=== PATIENT | female | born 1990 | race Caucasian/White ===

== ENCOUNTER 2018-11-22 01:34 | Emergency (ER) | payer MEDICAID ==
[~2018-11-22] VITALS: Ht 172.7 cm; Wt 46.2 kg
[~2018-11-22 01:34] MED LIST: HYDR-4383 PO; ONDA4TAB12 PO
[2018-11-22 01:39] VITALS: BP 128/79
[2018-11-22] MEDS ORDERED: acetaminophen 325mg tablet PO ONE (02:35)
[2018-11-22] MEDS ORDERED: bacitracin 15gm ointment TP ONE (02:35)
[2018-11-22] MEDS ORDERED: ketorolac trometh inj. 60 MG/2 ML VIAL IM ONE (02:35)
[2018-11-22] MEDS ORDERED: IBUP-1984 PO (03:19)
== END 2018-11-22 03:27 | disposition home or self-care (01) ==
LOC: ER 01:35
DX: T24.211A Burn of second degree of right thigh, initial encounter (principal); F12.90 Cannabis use, unspecified, uncomplicated; Z79.899 Other long term (current) drug therapy; Z98.890 Other specified postprocedural states; X15.0XXA Contact with hot stove (kitchen), initial encounter; Y93.89 Activity, other specified; Y92.89 Other specified places as the place of occurrence of the external cause; Y99.8 Other external cause status
CPT/HCPCS: 16000; 96372; 99284; J1885

== ENCOUNTER 2019-02-24 23:18 | Emergency (ER) | payer MEDICAID ==
[~2019-02-24] VITALS: Ht 172.7 cm; Wt 50.0 kg
[2019-02-24 23:31] VITALS: BP 114/62
== END 2019-02-24 23:39 ==
LOC: ER 23:19
DX: O99.321 Drug use complicating pregnancy, first trimester (principal); O99.331 Smoking (tobacco) complicating pregnancy, first trimester; F12.90 Cannabis use, unspecified, uncomplicated; F17.210 Nicotine dependence, cigarettes, uncomplicated; Z3A.01 Less than 8 weeks gestation of pregnancy; Z90.89 Acquired absence of other organs; Z79.899 Other long term (current) drug therapy
CPT/HCPCS: 99283

== ENCOUNTER 2019-04-01 19:52 | Emergency (ER) | payer MEDICAID ==
[~2019-04-01] VITALS: Ht 172.7 cm; Wt 50.0 kg
[2019-04-01 20:03] VITALS: BP 162/69
[2019-04-01] MEDS ORDERED: bacitracin 15gm ointment TP ONE (21:40)
[2019-04-01] MEDS ORDERED: CLIN150C8 PO (21:41)
== END 2019-04-01 21:50 | disposition home or self-care (01) ==
LOC: ER 19:53
DX: L02.415 Cutaneous abscess of right lower limb (principal); B07.8 Other viral warts; F12.90 Cannabis use, unspecified, uncomplicated; F10.99 Alcohol use, unspecified with unspecified alcohol-induced disorder; Z90.89 Acquired absence of other organs; Y90.9 Presence of alcohol in blood, level not specified; Z79.899 Other long term (current) drug therapy
CPT/HCPCS: 10060; 99283

== ENCOUNTER 2019-11-24 16:09 | Emergency (ER) | payer MEDICAID ==
[~2019-11-24] VITALS: Ht 172.7 cm; Wt 61.0 kg
[~2019-11-24 16:09] MED LIST changes: +CLIN150C8 PO
[2019-11-24 16:12] VITALS: BP 126/77
[2019-11-24 16:42] LABS: CLARITY,URINE CLOUDY (Clear); COLOR,URINE YELLOW (Yellow); GLUCOSE, URINE NEGATIVE (Neg); KETONES,URINE NEGATIVE (Neg); LEUKOCYTE ESTERASE ,URINE NEGATIVE (Neg); NITRITES, URINE POSITIVE (Neg); OCCULT BLOOD,URINE NEGATIVE (Neg); PH,URINE 6.5 (4.8-8.0); PROTEIN,URINE NEGATIVE (Neg); UROBILINOGEN,URINE 0.2 E.U/dL (0.2-1.0)
[2019-11-24 16:43] LABS: URINE HCG NEGATIVE (NEG)
[2019-11-24 16:49] LABS: UA COLLECTION TYPE CLN CATCH MIDSTREAM
[2019-11-24 16:50] LABS: BACTERIA,URINE 4+ /HPF (Neg); MUCUS STRANDS NONE SEEN /LPF (Neg); RBC,URINE NONE SEEN /HPF (0-2); SQUAMOUS EPITHELIAL CELL,UR MODERATE /LPF (FEW); WBC CLUMPS,URINE FEW /HPF (NEGATIVE)
[2019-11-24] MEDS ORDERED: CefTRIAXone 250MG IM Kit w/LIDOcaine IM ONE (17:00)
[2019-11-24] MEDS ORDERED: azithromycin 250mg tablet PO ONE (17:00)
[2019-11-24] MEDS ORDERED: METR500T PO (17:09)
== END 2019-11-24 17:52 | disposition home or self-care (01) ==
LOC: ER 16:09
DX: T19.2XXA Foreign body in vulva and vagina, initial encounter (principal); N76.0 Acute vaginitis; F31.9 Bipolar disorder, unspecified; F12.90 Cannabis use, unspecified, uncomplicated; Z90.89 Acquired absence of other organs; Z79.2 Long term (current) use of antibiotics; X58.XXXA Exposure to other specified factors, initial encounter; Y93.89 Activity, other specified; Y92.89 Other specified places as the place of occurrence of the external cause; Y99.8 Other external cause status
CPT/HCPCS: 36415; 81001; 81025; 87077; 87088; 87186; 87210; 87491; 87591; 96372; 99283; J0696; Q0112

== ENCOUNTER 2020-03-22 00:39 | Emergency (ER) | payer MEDICAID ==
[~2020-03-22] VITALS: Ht 172.7 cm; Wt 56.0 kg
[2020-03-22 00:46] VITALS: BP 123/74
[2020-03-22 01:40] LABS: URINE HCG NEGATIVE (NEG)
[2020-03-22 01:41] LABS: COLOR,URINE YELLOW (Yellow); GLUCOSE, URINE NEGATIVE (Neg); KETONES,URINE NEGATIVE (Neg); LEUKOCYTE ESTERASE ,URINE TRACE (Neg); NITRITES, URINE NEGATIVE (Neg); OCCULT BLOOD,URINE NEGATIVE (Neg); PROTEIN,URINE NEGATIVE (Neg); UROBILINOGEN,URINE 0.2 E.U/dL (0.2-1.0)
[2020-03-22 01:49] LABS: CLARITY,URINE SLIGHTLY CLOUDY (Clear); UA COLLECTION TYPE CLN CATCH MIDSTREAM
[2020-03-22 01:50] LABS: BACTERIA,URINE FEW /HPF (Neg); MUCUS STRANDS FEW /LPF (Neg); RBC,URINE 0-2 /HPF (0-2); SQUAMOUS EPITHELIAL CELL,UR MODERATE /LPF (FEW)
[2020-03-22] MEDS ORDERED: METR-159 PO (02:24)
[2020-03-22] MEDS ORDERED: azithromycin 250mg tablet PO ONE (02:25)
[2020-03-22] MEDS ORDERED: CefTRIAXone 250MG IM Kit w/LIDOcaine IM ONE (02:25)
== END 2020-03-22 03:07 | disposition home or self-care (01) ==
LOC: ER 00:40
DX: N76.0 Acute vaginitis (principal); Z20.2 Contact with and (suspected) exposure to infections with a predominantly sexual mode of transmission; F31.9 Bipolar disorder, unspecified; F12.90 Cannabis use, unspecified, uncomplicated; Z98.890 Other specified postprocedural states; Z79.2 Long term (current) use of antibiotics; Z79.899 Other long term (current) drug therapy
CPT/HCPCS: 81001; 81025; 87088; 87210; 96372; 99284; J0696

== ENCOUNTER 2020-06-21 09:40 | Emergency (ER) | payer MEDICAID ==
[~2020-06-21] VITALS: Ht 172.7 cm; Wt 58.0 kg
[2020-06-21 10:11] LABS: URINE HCG NEGATIVE (NEG)
[2020-06-21 10:13] LABS: CLARITY,URINE SLIGHTLY CLOUDY (Clear); COLOR,URINE YELLOW (Yellow); GLUCOSE, URINE NEGATIVE (Neg); KETONES,URINE NEGATIVE (Neg); LEUKOCYTE ESTERASE ,URINE SMALL (Neg); NITRITES, URINE POSITIVE (Neg); OCCULT BLOOD,URINE NEGATIVE (Neg); PROTEIN,URINE NEGATIVE (Neg)
[2020-06-21 10:14] LABS: UA COLLECTION TYPE CLN CATCH MIDSTREAM
[2020-06-21 10:30] LABS: BACTERIA,URINE 4+ /HPF (Neg); MUCUS STRANDS MODERATE /LPF (Neg); RBC,URINE 0-2 /HPF (0-2); SQUAMOUS EPITHELIAL CELL,UR MANY /LPF (FEW); WBC,URINE 20-30 /HPF (0-4)
[2020-06-21 10:31] LABS: WBC CLUMPS,URINE FEW /HPF (NEGATIVE)
[2020-06-21 11:07] VITALS: BP 119/71
[2020-06-21] MEDS ORDERED: fluconazole 150mg tablet PO ONE (11:45)
[2020-06-21] MEDS ORDERED: FLUC150T22 PO (11:45)
[2020-06-21] MEDS ORDERED: CIPR-259 PO (11:45)
== END 2020-06-21 11:54 | disposition home or self-care (01) ==
LOC: ER 09:41
DX: N39.0 Urinary tract infection, site not specified (principal); F31.9 Bipolar disorder, unspecified; F12.10 Cannabis abuse, uncomplicated; Z90.49 Acquired absence of other specified parts of digestive tract; Z79.899 Other long term (current) drug therapy; Z79.2 Long term (current) use of antibiotics
CPT/HCPCS: 81001; 81025; 99283; 99284

== ENCOUNTER 2022-09-14 00:43 | Emergency (ER) | payer MEDICAID ==
[~2022-09-14] VITALS: Ht 172.7 cm; Wt 56.8 kg
[2022-09-14 00:46] VITALS: BP 115/74
[2022-09-14] MEDS ORDERED: AZIT500T2 PO (01:18)
== END 2022-09-14 01:26 | disposition home or self-care (01) ==
LOC: ER 00:44
DX: J06.9 Acute upper respiratory infection, unspecified (principal); R10.9 Unspecified abdominal pain; J18.9 Pneumonia, unspecified organism; F31.9 Bipolar disorder, unspecified; F12.90 Cannabis use, unspecified, uncomplicated
CPT/HCPCS: 71045; 99283

== ENCOUNTER 2023-08-13 00:57 | Emergency (ER) | payer MEDICAID ==
[~2023-08-13] VITALS: Ht 172.7 cm; Wt 58.5 kg
[~2023-08-13 00:57] MED LIST changes: +CEPH-585 PO; +CLIN-214 PO; -CLIN150C8 PO
[2023-08-13 01:27] LABS: URINE HCG NEGATIVE (NEG)
[2023-08-13 01:33] LABS: BILIRUBIN,URINE NEGATIVE (Neg); CLARITY,URINE CLOUDY (Clear); COLOR,URINE YELLOW (Yellow); GLUCOSE, URINE NEGATIVE (Neg); KETONES,URINE NEGATIVE (Neg); LEUKOCYTE ESTERASE ,URINE MODERATE (Neg); NITRITES, URINE POSITIVE (Neg); OCCULT BLOOD,URINE NEGATIVE (Neg); PH,URINE 7.5 (4.8-8.0); PROTEIN,URINE NEGATIVE (Neg); UROBILINOGEN,URINE 0.2 E.U/dL (0.2-1.0)
[2023-08-13 01:34] LABS: UA COLLECTION TYPE CLN CATCH MIDSTREAM
[2023-08-13 01:47] LABS: WBC,URINE 0-4 /HPF (0-4)
[2023-08-13 01:48] LABS: BACTERIA,URINE 4+ /HPF (Neg); MUCUS STRANDS FEW /LPF (Neg); RBC,URINE NONE SEEN /HPF (0-2); SQUAMOUS EPITHELIAL CELL,UR MANY /LPF (FEW)
[2023-08-13 02:23] LABS: ALANINE AMINOTRANSFERASE 20 U/L (12-78); ALBUMIN 4.1 G/DL (3.4-5.0); ALBUMIN/GLOBULIN RATIO 1.1 (1.1-1.5); ALKALINE PHOSPHATASE 85 IU/L (46-116); ANION GAP 7 (8-16); ASPARTATE AMINO TRANSFERASE 17 U/L (10-37); BILIRUBIN,TOTAL 0.3 MG/DL (0.1-1.0); BLOOD UREA NITROGEN 10 MG/DL (7-18); BUN/CREATININE RATIO 14.1 (10.0-20.0); CALCIUM 9.6 MG/DL (8.5-10.1); CHLORIDE 99 MMOL/L (99-107); CREATININE 0.71 MG/DL (0.40-0.90); GLUCOSE 89 MG/DL (70-104); LIPASE 20 U/L (16-77); POTASSIUM 4.5 MMOL/L (3.5-5.1); SODIUM 138 MMOL/L (135-145); TOTAL CARBON DIOXIDE 32.2 MMOL/L (24-32); eCRCL 105 ML/MIN; eGFR > 90 ML/MIN
[2023-08-13 02:35] LABS: BASOPHILS % (AUTO) 0.1 % (0-1); EOSINOPHILS # (AUTO) 0.1 X10'3 (0-0.9); EOSINOPHILS % (AUTO) 2.5 % (0-6); HEMATOCRIT 45.9 % (35.0-45.0); HEMOGLOBIN 15.5 g/dl (12.0-16.0); LYMPHOCYTES # (AUTO) 1.8 X10'3 (1.1-4.8); LYMPHOCYTES % (AUTO) 30.7 % (21-51); MEAN CORPUSCULAR HEMOGLOBIN 30.3 PG (27.0-31.0); MEAN CORPUSCULAR HGB CONC 33.7 g/dL (33.0-36.5); MONOCYTES # (AUTO) 0.6 X10'3 (0-0.9); MONOCYTES % (AUTO) 10.5 % (2-12); NEUTROPHILS # (AUTO) 3.3 X10'3 (1.8-7.7); NEUTROPHILS % (AUTO) 56.2 % (42-75); PLATELET COUNT 269 X10'3 (140-440); RED CELL DISTRIBUTION WIDTH 12.7 % (11.5-14.5); WHITE BLOOD COUNT 5.9 X10'3 (4.5-11.0)
[2023-08-13 02:50] VITALS: BP 116/71; PULSE 89; O2SAT 99
[2023-08-13 02:51] VITALS: RESP 16
[2023-08-13] MEDS ORDERED: dicyclomine 10 MG capsule PO ONE (03:40)
[2023-08-13] MEDS ORDERED: ONDA4TAB12 PO (03:40)
[2023-08-13] MEDS ORDERED: ondansetron 4mg rapidly disintigrating tab PO ONE (03:40)
[2023-08-13] MEDS ORDERED: DICY10CA88 PO (03:40)
[2023-08-13 04:04] VITALS: TEMP 97.8
== END 2023-08-13 04:06 | disposition home or self-care (01) ==
LOC: ER 00:58
DX: R11.10 Vomiting, unspecified (principal); R19.7 Diarrhea, unspecified; R10.84 Generalized abdominal pain; F15.90 Other stimulant use, unspecified, uncomplicated; F12.90 Cannabis use, unspecified, uncomplicated; F17.200 Nicotine dependence, unspecified, uncomplicated; Z87.442 Personal history of urinary calculi; Z79.2 Long term (current) use of antibiotics; Z79.899 Other long term (current) drug therapy
CPT/HCPCS: 36415; 80053; 81001; 81025; 83690; 85025; 99283

== ENCOUNTER 2024-10-08 22:57 | Emergency (ER) | payer MEDICAID, OTHER ==
[~2024-10-08] VITALS: Ht 172.7 cm; Wt 61.2 kg
[~2024-10-08 22:57] MED LIST changes: -CEPH-585 PO; +ONDA-243 PO; -ONDA4TAB12 PO
[2024-10-09] MEDS ORDERED: AMOX-117 PO (00:43)
[2024-10-09 00:54] VITALS: BP 123/78; PULSE 90; RESP 16; TEMP 98.6; O2SAT 99
== END 2024-10-09 00:56 | disposition home or self-care (01) ==
LOC: ER 22:57
DX: J32.9 Chronic sinusitis, unspecified (principal); J20.9 Acute bronchitis, unspecified; F31.9 Bipolar disorder, unspecified; F12.90 Cannabis use, unspecified, uncomplicated; F15.90 Other stimulant use, unspecified, uncomplicated; Z87.442 Personal history of urinary calculi
CPT/HCPCS: 87502; 87503; 99283